=== PATIENT | male | born 1975 | race Two or more races ===

== ENCOUNTER 2025-03-17 08:45 | Day surgery (SDC) | payer MEDICAID, SELFPAY ==
[2025-03-16 12:01] VITALS: BMI 25.0
--- NOTE | 2025-03-16 15:24 | ESHP_ITS ---
RE: RITA ROMAN : 1975 DATE OF ADMISSION: 03/16/2025 HISTORY OF PRESENT ILLNESS: The patient is scheduled to have cystoscopy for his prostatism. The patient is at [facility] with developmental disability. He is on tamsulosin 0.4 mg, but he still urinates 5 times and his urinary stream is slow. The patient's urinalysis is negative and his serum creatinine is normal. The patient is scheduled to have cystoscopy for evaluation of his lower urinary tract. Again, the patient is a young gentleman from [facility] with nocturia. He is taking tamsulosin. PHYSICAL EXAMINATION: HEENT: Normal. NECK: Supple. LUNGS: Clear. CARDIOVASCULAR: Heart sounds are normal. ABDOMEN: Soft without any organomegaly. No guarding. No rigidity. EXTREMITIES: Normal. LABORATORY DATA: The patient's serum creatinine has gone up to 1.65. IMPRESSION: 1. Prostatism. 2. Elevated serum creatinine. 3. Developmental disability. PLAN: Cystoscopy to evaluate the lower urinary tract. Planned procedure risks and complications have been discussed with the patient. The patient has understood them and agreed to proceed. Thank you very much for your kind referral. cc: [facility] DT: 14:58:30 TT: 15:24:00 Ref: [id number] - TID: [id number]
[2025-03-17 09:30] VITALS: BP 121/99; PULSE 76; RESP 17; TEMP 36.8; O2SAT 100; BMI 26.0
[2025-03-17 12:07] VITALS: BP 141/87; PULSE 71; RESP 12; TEMP 36.4; O2SAT 100
--- NOTE | 2025-03-17 12:07 | SUR.PHASEII ---
1207: Pt. wakes to name then drifts back to sleep, vitals stable, breathing unlabored, no complaint of pain or nausea, no dressing in place, no active bleed noted, report received from MD Kumar and Jeff BARKER.
[2025-03-17 12:12] VITALS: BP 142/89; PULSE 72; RESP 12; TEMP 36.7; O2SAT 100
[2025-03-17 12:17] VITALS: BP 129/67; PULSE 74; RESP 20; TEMP 36.9; O2SAT 100
[2025-03-17 12:22] VITALS: BP 133/84; PULSE 75; RESP 13; TEMP 36.9; O2SAT 100
[2025-03-17 12:37] VITALS: BP 130/85; PULSE 77; RESP 13; TEMP 36.7; O2SAT 100
--- NOTE | 2025-03-17 12:40 | SUR.PHASEII ---
1240: Pt. AAOx4, vitals stable, breathing unlabored, no complaint of pain or nausea, no dressing in place, no active bleed noted, pt. tolerated sips of water well, pt. ambulated to wheelchair with steady gait and no assist, no complications. Give discharge instructions to the pt. and his ride, both verbalized understanding and had no further questions. Pt. left with all personal belongings.
--- NOTE | 2025-03-21 14:04 | ESOP_ITS ---
RE: RITA ROMAN : 1975 DATE OF OPERATION: 03/17/2025 PREOPERATIVE DIAGNOSES: Prostatism and prostatic obstruction. The patient from [facility] with developmental disability. POSTOPERATIVE DIAGNOSES: Prostatism and prostatic obstruction. The patient from [facility] with developmental disability. PROCEDURE PERFORMED: Urethral dilatation and cystoscopy. ANESTHESIA: Monitored anesthesia. INDICATION: The patient is a 49-year-old gentleman from [facility] with nocturia 5 times with slow urinary stream. He is on tamsulosin 0.4 mg every day. Rectally, he has a small prostate, which has no hard nodules and it feels benign. The patient is now scheduled to have cystoscopy in view of his prostatism to evaluate his lower urinary tract. Planned procedure, risks, and complications have been discussed with the patient. The patient understood them and agreed to proceed. DESCRIPTION OF PROCEDURE: After the patient was brought to the operating table under adequate monitored anesthesia, he was placed in dorsal lithotomy position. Parts were prepped and draped in the usual fashion. The patient's urethral meatus was somewhat small, which was dilated. A 19- Romanian scope was introduced into the urethra. Now, the meatus was open. The urethra was open. Prostatic urethra was visualized, which was showing a small bilobed prostate without any obstruction. The scope was introduced into the bladder. Residual urine was 4 ounces, yellow and clear, which was sent for culture and sensitivity examination. There were no intravesical stones or tumors. Bladder mucosa was heavily trabeculated. There were small diverticula on the bladder on the dome. Ureteral orifices were found to be located laterally like a C position. The scope was withdrawn. The urethra was dilated. The patient tolerated the entire procedure well and left the room in good condition. PLAN: We will continue his tamsulosin 0.4 mg every day. I will see him in the office at [facility] in about 2 weeks. DT: 12:15:09 TT: 21:12:00 Ref: [id number] - TID: [id number]
== END 2025-03-17 12:40 | disposition home or self-care (01) ==
PROVIDERS: Referring Provider Surgery; Visit Provider Surgery
PROC: 0TJB8ZZ Inspection of Bladder, Via Natural or Artificial Opening Endoscopic (ICD-10-PCS; CPT 52000; principal; 2025-03-17 11:15)
DX: N40.1 Benign prostatic hyperplasia with lower urinary tract symptoms (principal); R39.12 Poor urinary stream
CPT/HCPCS: 52281; 87077; 87086; 87186; A4217; A4649; J2250; J2704